=== PATIENT | male | born 1970 | race Caucasian/White ===

== ENCOUNTER 2016-12-03 01:45 | Emergency (ER) | payer BC, OTHER ==
[~2016-12-03] VITALS: Ht 172.7 cm; Wt 94.7 kg
[2016-12-03 01:47] VITALS: BP 142/93
== END 2016-12-03 03:47 | disposition home or self-care (01) ==
LOC: ED 03:41
DX: R30.0 Dysuria (principal)
CPT/HCPCS: 81001; 99283

== ENCOUNTER 2019-09-09 17:57 | Inpatient (IN) | payer BC ==
[~2019-09-09] VITALS: Ht 172.7 cm; Wt 94.3 kg
--- NOTE | 2019-09-09 18:07 | NUR ---
MACHINE I TRIMMER: DR. HERNANDEZ IN TRIAGE ASSESSING PT.
--- NOTE | 2019-09-09 18:25 | NUR ---
PT SENT FROM , PT BEGAN EXPERIENCING CONFUSION, INABLILITY TO FOCUS AND FIND WORDS. PT FELT DIZZY AND NAUSEATED. SYMPTOMS LASTED FOR APPROX 2.5HOURS, PT DENIES ANY SYMPTOMS AT THIS TIME.
--- NOTE | 2019-09-09 18:50 | NUR ---
Report rec'd from Amanda assumed patient care. Pending provider evaluation. Family at bedside.
[2019-09-09 20:18] LABS: BASOPHILS # (AUTO) 0.03 x10^3/uL (0-0.1); BASOPHILS % (AUTO) 0 % (0-1); EOSINOPHILS # (AUTO) 0.03 x10^3/uL (0-0.4); EOSINOPHILS % (AUTO) 0 % (1-7); LYMPHOCYTES # (AUTO) 1.62 x10^3/uL (1-3.4); LYMPHOCYTES % (AUTO) 18 % (22-44); MD NO; MEAN CORPUSCULAR HEMOGLOBIN 29.4 pg (27.5-34.5); MEAN CORPUSCULAR HGB CONC 33.5 g/dL (33.2-36.2); MEAN CORPUSCULAR VOLUME 87.7 fL (81-97); MEAN PLATELET VOLUME 8.3 fL (7.4-10.4); MONOCYTES # (AUTO) 0.37 x10^3/uL (0.2-0.8); MONOCYTES % (AUTO) 4 % (2-9); NEUTROPHILS # (AUTO) 7.17 x10^3/uL (1.8-6.8); NEUTROPHILS % (AUTO) 78 % (42-75); PLATELET COUNT 200 x10^3/uL (130-400); RED BLOOD COUNT 5.29 x10^6/uL (4.38-5.82); RED CELL DISTRIBUTION WIDTH 13.6 % (9.4-14.8)
[2019-09-09 20:28] LABS: ALANINE AMINOTRANSFERASE 60 U/L (12-78); ALBUMIN 4.2 g/dL (3.4-5.0); ANION GAP 4 mmol/L (5-15); CALCIUM 8.9 mg/dL (8.5-10.1); CHLORIDE 108 mmol/L (98-107); CREATININE 0.94 mg/dL (0.7-1.3)
[2019-09-09 20:32] LABS: ALKALINE PHOSPHATASE 99 U/L (45-117); BILIRUBIN,TOTAL 0.4 mg/dL (0.2-1.0); TROPONIN I < 0.015 ng/mL (0.000-0.045)
--- NOTE | 2019-09-09 20:41 | NUR ---
Patient to CT with tech
--- NOTE | 2019-09-09 21:07 | NUR ---
Patient returned from CT. attached to monitors family at bedside
--- NOTE | 2019-09-09 21:46 | NUR ---
Provider at bedside discussing the results with patient.
--- NOTE | 2019-09-09 22:14 | NUR ---
Resting in bed, pending bed placement. family at bedside. NAD noted
[2019-09-09] MEDS ORDERED: POLYETHYLENE GLYCOL 17 GM PACKET PO PRN (22:30)
[2019-09-09] MEDS ORDERED: ACETAMINOPHEN 650 MG/20.3 ML UDC PO PRN (22:30)
[2019-09-09] MEDS ORDERED: BISACODYL 10 MG SUPP PR PRN (22:30)
[2019-09-09] MEDS ORDERED: ONDANSETRON 4 MG TABLET PO PRN (22:30)
[2019-09-09] MEDS ORDERED: DOCUSATE 100 MG CAPSULE PO PRN (22:30)
[2019-09-09] MEDS ORDERED: ATORVASTATIN 40 MG TABLET PO SCH (22:30)
--- NOTE | 2019-09-09 22:34 | NUR ---
Report given to Luis.
--- NOTE | 2019-09-09 22:42 | NUR ---
Patient transported with all belongings to room 526 with Tech and spouse
[2019-09-09 22:55] VITALS: BP 158/87
[2019-09-09] MEDS ORDERED: OMNIPAQUE 350 MG/ML, 100ML BOTTLE ONE (23:20)
[2019-09-09] MEDS ORDERED: ONDANSETRON ODT 4 MG PO PRN (23:30)
[2019-09-10 03:00] VITALS: BP 125/72
[2019-09-10 05:47] LABS: CHOL/HDL RATIO 5.4; LDL/HDL RATIO 3.7 (0.5-3.0)
[2019-09-10] MEDS ORDERED: ASPIRIN 81 MG TABLET CHEW PO/NG SCH (09:00)
[2019-09-10 09:43] VITALS: BP 131/84
[2019-09-10 15:29] VITALS: BP 125/72
== END 2019-09-10 15:42 | disposition home or self-care (01) | DRG 69 ==
LOC: ED 20:21 → EDIP 22:08 → 5SO 22:46
PROVIDERS: ADMIT Family Medicine; ATTEND Family Medicine
DX: G45.9 Transient cerebral ischemic attack, unspecified (principal); R47.01 Aphasia; G46.0 Middle cerebral artery syndrome
CPT/HCPCS: 36415; 70450; 70496; 70498; 70551; 71045; 80053; 80061; 84484; 85025; 93005; 93306; 99285; G0378; Q9967